=== PATIENT | male | born 1995 | race Caucasian/White ===

== ENCOUNTER 2018-01-28 22:34 | Emergency (ER) | payer OTHER, SELFPAY ==
[2018-01-28 22:35] VITALS: BP 167/103; PULSE 83; RESP 15; TEMP 36.1; O2SAT 97; BMI 49.1
[2018-01-28 23:08] VITALS: BP 158/86; PULSE 88; RESP 16; O2SAT 96
--- NOTE | 2018-01-28 23:14 | CT_ITS ---
STUDY: CT BRAIN WITHOUT CONTRAST REASON FOR EXAM: Male, 22 years old. Head pain RADIATION DOSAGE (If Supplied By Facility): CTDIvol = ( 44.99 ) mGy, DLP = ( 745.49 ) mGycm TECHNIQUE: Transaxial CT imaging of the brain was performed without administration of intravenous contrast material. Individualized dose optimization techniques were used for this CT. COMPARISON: None. FINDINGS: Normal soft tissue structures. Normal calvarium. Normal size ventricles and extra-axial spaces for the patient's age. Normal white matter tracts of the cerebral hemispheres. Normal basal ganglia and thalami. Normal brainstem. Normal cerebellum. There is no intracranial hemorrhage. There are no findings of an acute ischemic infarction. Normal visualized paranasal sinuses. CT/Brain/Head without Contrast IMPRESSION: Normal unenhanced CT scan of the brain. Electronically Signed: Matti Liang, at 0:22 EDT Tel , Service support ,
[2018-01-28] MEDS: 0.9% Normal Saline 1,000 ML 999 ML IV (23:28)
[2018-01-28] MEDS: DiphenhydrAMINE 50 MG/ML Syringe 25 MG IV (23:28)
[2018-01-28] MEDS: proCHLORPERazine 10 MG/2 ML Vial IV (23:28)
--- NOTE | 2018-01-28 23:33 | ED.VISSUMM ---
- ER Visit Summary Date of Service: 01/28/18 Chief Complaint: Headache History of Present Illness: The patient is a 22 M presenting with a headache that started fairly suddenly during sexual intercourse 2 days ago. It was right-sided. It was fairly severe at onset but then essentially resolved. It has recurred 2-3 times fairly severely since then with exertion. He has a history of hypertension but has not required medication. He has no neck pain or visual symptoms. No facial numbness or confusion. He has a remote history of concussion during high school football but has a family history of brain aneurysm that required a coil in his father in his low 50s. Current severity is mild. He does have a history of migraines as a child and this feels somewhat similar but states that he was never actually formally diagnosed with migraines. He did have frequent headaches and was told that they are most likely migraines but did not see a physician for them. Physical Examination: Vitals are within normal limits. He is not in distress. Pupils are equal and reactive. Neck is supple. Heart tones are regular and without murmur. Lungs are clear bilaterally. He has no focal or lateralizing neuro findings. No paresthesias. No facial droop. Test Results: Noncontrast CT brain was ordered and will be checked by the oncoming physician, Dr. Hernández. He has had symptoms for over 24 hours however so I think it is reasonable to perform a CT angiogram because of his family history of aneurysm and the fact that his headache was fairly sudden onset. He has a completely normal neurologic exam at this time and no evidence of meningitis or other significant process. Emergency Department Course and Treatment: He was medicated with IV fluids, Benadryl, and Compazine. Care will be turned over. Treatment Plan: Check CT scan and reevaluate Disposition: Home if imaging negative Impression: Initial encounter acute onset headache This note was generated with [employer] dictation software. It may contain incorrect words, spelling, and punctuation that were not noted in review of the chart prior to signing ED Disposition - Plan for ED Patient: Chief Complaint: Headache Referrals: Patrice Oneill MD [Primary Care Provider] -
--- NOTE | 2018-01-28 23:38 | ED.DCSUM_ITS ---
- ER Visit Summary Date of Service: 01/28/18 Chief Complaint: Headache History of Present Illness: The patient is a 22 M presenting with a headache that started fairly suddenly during sexual intercourse 2 days ago. It was right -sided. It was fairly severe at onset but then essentially resolved. It has recurred 2-3 times fairly severely since then with exertion. He has a history of hypertension but has not required medication. He has no neck pain or visual symptoms. No facial numbness or confusion. He has a remote history of concussion during high school football but has a family history of brain aneurysm that required a coil in his father in his low 50s. Current severity is mild. He does have a history of migraines as a child and this feels somewhat similar but states that he was never actually formally diagnosed with migraines. He did have frequent headaches and was told that they are most likely migraines but did not see a physician for them. Physical Examination: Vitals are within normal limits. He is not in distress. Pupils are equal and reactive. Neck is supple. Heart tones are regular and without murmur. Lungs are clear bilaterally. He has no focal or lateralizing neuro findings. No paresthesias. No facial droop. Test Results: Noncontrast CT brain was ordered and will be checked by the oncoming physician, Dr. Hernández. He has had symptoms for over 24 hours however so I think it is reasonable to perform a CT angiogram because of his family history of aneurysm and the fact that his headache was fairly sudden onset. He has a completely normal neurologic exam at this time and no evidence of meningitis or other significant process. Emergency Department Course and Treatment: He was medicated with IV fluids, Benadryl, and Compazine. Care will be turned over. Treatment Plan: Check CT scan and reevaluate Disposition: Home if imaging negative Impression: Initial encounter acute onset headache This note was generated with [employer] dictation software. It may contain incorrect words, spelling, and punctuation that were not noted in review of the chart prior to signing ED Disposition - Plan for ED Patient: Chief Complaint: Headache Referrals: Patrice Oneill MD [Primary Care Provider] -
[2018-01-29 01:12] LABS: Anion Gap 6 (5-15); BUN 17 mg/dL (7-18); BUN/Creat Ratio 21.7 RATIO (10-20); Calcium,Total 8.1 mg/dL (8.5-10.1); Chloride 111 mmol/L (98-107); Creatinine, Serum 0.78 mg/dL (0.70-1.30); EST Glomerular Filtration Rate 131 mL/min (>60); Est Glom Filt Rate - Afr Amer 159 mL/min (>60); Estimated Creatinine Clearance 143.72 ml/min; Glucose 96 mg/dL (74-106); Potassium 3.6 mmol/L (3.5-5.1); Sodium Level 142 mmol/L (136-145)
[2018-01-29 01:19] VITALS: BP 141/69; PULSE 71; RESP 16; O2SAT 98
--- NOTE | 2018-01-29 01:46 | ED.DEP ---
ED Disposition - Plan for ED Patient: Chief Complaint: Headache Instructions: ED Cephalgia Unspecified Prescriptions: Butalb/Acetaminophen/Caffeine [Fioricet 50-300-40 mg Capsule] 1 each PO 4X/DAY PRN PRN #14 capsule PRN Reason: Headache Referrals: Patrice Oneill MD [STAFF PHYSICIAN] - 3-5 Days
[2018-01-29 01:55] VITALS: BP 158/60; PULSE 76; RESP 18; O2SAT 96
--- NOTE | 2018-01-29 23:57 | CT_ITS ---
STUDY: CTA OF THE BRAIN REASON FOR EXAM: Male, 22 years old. Sudden onset of blurred vision RADIATION DOSAGE (If Supplied By Facility): CTDIvol = ( 14.77 ) mGy, DLP = ( 728.31 ) mGycm TECHNIQUE: CT angiography was performed with a multi-detector CT scanner. Data acquisition was obtained from the skull base through the vertex following intravenous administration of ml of . MIP images were reconstructed from the axial data set. Post-processing of the angiographic images was performed, with multiplanar reformation and 3D reconstruction. Individualized dose optimization techniques were used for this CT. COMPARISON: None. FINDINGS: Normal bilateral petrous carotid arteries. Normal right cavernous carotid artery with a normal supraclinoid bifurcation. Normal left cavernous carotid artery with a normal supraclinoid bifurcation. Normal right A1 segments of the anterior cerebral artery. Normal left A1 segments of the anterior cerebral artery. Normal intact anterior communicating artery (ACOM). Normal bilateral A2 segments of the anterior cerebral arteries. Normal right M1 and M2 segments of the middle cerebral arteries, with a normal M1 bifurcation. Normal left M1 and M2 segments of the middle cerebral arteries, with a normal M1 bifurcation. Normal right posterior communicating artery (PCOM). Normal left posterior communicating artery (PCOM). Normal bilateral vertebral arteries. Normal basilar artery with a normal basilar bifurcation. The visualized bilateral superior cerebellar (SCA) arteries are normal. Normal bilateral P1, P2 and visualized P3 segments of the posterior cerebral arteries. There is no demonstrated aneurysm of the [place] of [place]. There is no demonstrated abnormality of the visualized brain. CT/CTA Head W/WO Contrast IMPRESSION: Normal [place] of [place] without a demonstrated aneurysm or hemodynamically significant stenosis. Electronically Signed: Javier Milligan, at 0:32 EDT Tel , Service support ,
--- NOTE | 2018-01-29 23:57 | CT_ITS ---
CTA of the neck. CLINICAL HISTORY: Sudden onset of blurred vision. PROCEDURE: Examination was done with mL's of Isovue 370. Multiple images presented. FINDINGS:. Normal takeoffs of the left subclavian, left common carotid and in the brachiocephalic arteries from the arch of the aorta. The entire left carotid system is normal with no focal aneurysms, dissections or hemodynamically significant stenosis. No evidence of calcific atherosclerosis. The entire right carotid system is also normal with no focal aneurysms, dissections or hemodynamically significant stenosis. No atherosclerotic plaques are seen. Both vertebral arteries and the basilar artery are normal. IMPRESSION: The study is within normal limits Electronically Signed: Javier Milligan, at 0:39 EDT Tel , Service support , CT/CTA Neck W/WO Contrast
== END 2018-01-29 01:56 | disposition home or self-care (01) ==
LOC: ED 23:36
PROVIDERS: Emergency Provider Emergency Medicine
DX: R51 Headache (principal); Z82.49 Family history of ischemic heart disease and other diseases of the circulatory system
CPT/HCPCS: 70450; 70496; 70498; 80048; 96361; 96374; 96375; 99283; J7030; Q9967

== ENCOUNTER 2022-11-24 11:58 | Emergency (ER) | payer BC, SELFPAY ==
[2022-11-24 11:59] VITALS: BP 162/96; PULSE 83; RESP 16; TEMP 36.6; O2SAT 96; BMI 50.5
--- NOTE | 2022-11-24 12:13 | RAD_ITS ---
INDICATION: Trauma, Pain EXAMINATION/TECHNIQUE: X-RAY - RIGHT XR Ankle Min 3 Views 3 VIEWS COMPARISON: FINDINGS: SOFT TISSUES: No soft tissue swelling or gas. No radiopaque foreign body. BONES/JOINTS: No acute fracture or subluxation.. Normal alignment. Preservation of the joint space.. No sclerotic or destructive changes observed. RAD/Ankle min 3 Views IMPRESSION: Within normal limits examination. Electronically Signed: Kenya Woosd MD at 12:42 EDT ,
--- NOTE | 2022-11-24 12:13 | ED.VIS.LOWEX ---
HPI History of Present Illness Chief Complaint: Lower Extremity Injury Narrative Narrative: 27-year-old male presents with his mother because of it injury to his right ankle that he sustained last evening. He states he has had prior fracture of his right ankle and fracture of his right foot. He was walking yesterday and stepped down from concrete to brick and suffered an inversion injury. He felt a snap, and heard a crackle and pop and now has pain on the lateral aspect of his right ankle. He has been icing and ibuprofen has been taken. He is concerned because he is having continued pain. He denies hitting his head or loss of consciousness or any other serious injury. He presents because of the right ankle pain. PFSH PFS Home Medications albuterol sulfate 90 mcg/actuation aerosol inhaler (Ventolin HFA) 2 puff inhalation Q6H PRN PRN Dyspnea/Wheezing/Sob 01/03/15 [History Last Taken Unknown] cyclobenzaprine 10 mg tablet 10 mg PO TID PRN Muscle Spasm ##20 03/19/17 [Rx Last Taken Unknown] naproxen 500 mg tablet 500 mg PO BID PRN #20 tabs 03/19/17 [Rx Last Taken Unknown] cjpvwlylah-cadnlmjsoudkh-aqapbmch 50 mg-300 mg-40 mg capsule (Fioricet) 1 ea PO 4X/DAY PRN PRN Headache ##14 01/29/18 [Rx Last Taken Unknown] Allergy/AdvReac Type Severity Reaction Status Date / Time No Known Allergies Allergy Verified 11/24/22 11:59 Social History Smoking Status: Never smoker ROS ROS ED ROS Narrative Constitutional: No fever, no chills. HEENT: No sore throat. No neck pain. No loss of vision. No rhinorrhea. Cardiovascular: No chest pain. No palpitations. No pedal edema. Respiratory: No cough, no shortness of breath. Abdominal: No abdominal pain. No nausea. No vomiting. Genitourinary: No dysuria. No hematuria. Musculoskeletal: No myalgias. Right ankle pain, laterally, worse with weightbearing movement, and walking. Neurologic: No headaches. No dizziness. No lightheadedness. Skin: No rash. No change in color. Psychiatric: No depression. No anxiety. EXAM Physical Exam Narrative Exam Narrative: Afebrile. Vital signs noted. HEENT: Normocephalic. Atraumatic. PERRL, EOMI. Neck soft and supple. No point tenderness or step off. Cardiovascular: Regular rate and rhythm. No murmurs, rubs, or gallops appreciated. Respiratory: No tachypnea. Lungs clear to auscultation bilaterally. Gastrointestinal: Abdomen soft, nontender, with normoactive bowel sounds. No rebound or guarding. Neurological: Awake. Alert. Nonfocal, nonlateralizing. Skin: No rash. Normal color. No pallor. Musculoskeletal: No pedal edema. Mild tenderness palpation right distal fibula and lateral malleolus. Palpable dorsalis pedis pulse. EHL intact. No palpable Achilles tendon deficit. No proximal fibular head tenderness or tibial tenderness. Flexion and extension of knee intact, able to lift leg off bed without difficulty. Able to flex and dorsiflex right foot, but range of motion limited secondary to pain. Const Vital Signs: 11/24/22 11:59 Temperature 98 F Temperature Source Temporal Pulse Rate 83 Respiratory Rate 16 Blood Pressure 162/96 H Blood Pressure Mean 118 Pulse Ox 96 Oxygen Delivery Method Room Air MDM MDM MDM Narrative Medical decision making narrative: X-rays were obtained of the right ankle in 3 views and interpreted by myself. On my independent interpretation, I see no evidence of acute fracture, no soft tissue swelling. I reviewed the radiology report which confirms my independent interpretation. At this point in time, he will be placed in an Aircast if it readily fits, if it does not he will be placed and an Denis wrap. He states he has crutches at home. He will continue ice and elevation at home along with [id number]-[id number] analgesics. I do not feel that narcotic pain medication is indicated for his ankle sprain. I feel he can be discharged to follow-up with his primary care provider. Return instructions to the emergency department were reviewed. Disposition is discharged home in stable condition. Radiography Diagnostic Testing: Clinical Impression(s) from Imaging Studies Ankle X-Ray 11/24/22 12:13 IMPRESSION: Within normal limits examination. Electronically Signed: Kenya Woods MD at 12:42 EDT , Discharge Plan Triage Chief Complaint: Lower Extremity Injury ED Provider: Steve Westbrook Dx/Rx/DC Orders Clinical Impression: Right ankle sprain, Fall Instructions: ED Mechanical Fall, ED Ankle Sprain (Adult) Prescriptions: No Action albuterol sulfate [Ventolin HFA] 1 INHALER inhaler 2 puff inhalation Q6H PRN PRN (Reason: Dyspnea/Wheezing/Sob) cyclobenzaprine 10 MG tablet 10 mg PO TID PRN (Reason: Muscle Spasm) Qty: 20 0RF naproxen 500 MG tablet 500 mg PO BID PRN Qty: 20 0RF pfmlzrizmk-vnuciltnhescp-sggg [Fioricet] 1 EACH capsule 1 ea PO 4X/DAY PRN PRN (Reason: Headache) Qty: 14 0RF Primary Care Provider: Deandre Clark Referrals: Care Physician,No Primary [Non-Staff] - Activity Restrictions/Additional Instructions: Continue faut-cof-egeintf analgesics, ice, and elevation at home. Use your crutches as needed. Disposition Disposition: Home, Self Care
== END 2022-11-24 13:17 | disposition home or self-care (01) ==
PROVIDERS: Emergency Provider Emergency Medicine; Visit Provider Emergency Medicine
DX: S93.401A Sprain of unspecified ligament of right ankle, initial encounter (principal); X50.1XXA Overexertion from prolonged static or awkward postures, initial encounter; W19.XXXA Unspecified fall, initial encounter; Y93.01 Activity, walking, marching and hiking
CPT/HCPCS: 73610; 99283